=== PATIENT | male | born 1975 | race Caucasian/White ===

== ENCOUNTER 2017-02-08 19:08 | Emergency (ER) | payer OTHER ==
[~2017-02-08] VITALS: Ht 180.3 cm; Wt 109.3 kg
--- NOTE | ~2017-02-08 | EKG ---
PATIENT: FAWN VINCENT UNIT #: [id number] Ventricular Rate: 53 BPM Atrial Rate: 53 BPM P-R Interval: 158 ms QRS Duration: 92 ms Q-T Interval: 422 ms QTC Calculation(Bezet): 395 ms P [place]: 2 degrees Calculated R [place]: -13 degrees Calculated T [place]: 58 degrees Diagnosis Line: Sinus bradycardia Diagnosis Line: Otherwise normal ECG Diagnosis Line: When compared with ECG of 20-JUN-2015 17:52, Diagnosis Line: No significant change was found Diagnosis Line: Confirmed by MODESTO MULLINS MD ([id number]) on Diagnosis Line: 02/11/2017 10:48:37 AM INTERPRETING MD: HARPREET FISCHER
--- NOTE | ~2017-02-08 | CT2 ---
[facility] A Service of [facility] RADIOLOGY TEXT RESULTS PATIENT: FAWN VINCENT LOCATION: [facility] : 73 UNIT #: [id number] AGE: [address]: Raji Fraga DO SEX: M ORDER DR: [id number] [facility] [address] [place], [place] [address] [id number] E MR#: [id number] Acc #: [id number] NAME: FAWN VINCENT : 1975 SEX: M STUDY DATE/TIME: 02/08/2017 23:39 UNIT: MARK ROOM: STUDY DESCRIPTION: CT Abd and Pelv W Cont Attending Physician: Raji Fraga D.O. Ordering Physician: Raji Fraga D.O. Primary Care Physician: Dileep Marion M.D. MEDICAL IMAGING REPORT This report is preliminary unless electronic signature is present EXAM CT abdomen and pelvis with contrast INDICATIONS Generalized abdominal pain and upper abdominal pain today. PROCEDURE Contrast-enhanced CT abdomen and pelvis. This CT exam was performed with one or more of the following radiation dose reduction techniques: Automatic exposure control, adjustment of mA and/or kV according to patient size, and iterative reconstruction. COMPARISON 05/24/2012 FINDINGS ABDOMEN WITH CONTRAST: Included lung bases are clear. Partially included right infrahilar node measures 3.0 x 1.5 cm. This was not seen on the previous study. This level was not included. No liver or splenic mass. The kidneys, adrenal glands, pancreas and gallbladder are unremarkable. The bowel loops are nondilated. Appendix is normal. PELVIS WITH CONTRAST: No pelvic mass or fluid. Liver is borderline enlarged at 19 cm in length. It has increased in size since 2011, when it measured 16.6 cm. IMPRESSION 1. Borderline hepatomegaly increased since 2011. No focal liver lesion. 2. Otherwise, no acute findings are seen in the abdomen or pelvis. [facility] A Service of [facility] RADIOLOGY TEXT RESULTS PATIENT: FAWN VINCENT LOCATION: [facility] : 73 UNIT #: [id number] AGE: [address]: Raji Fraga DO SEX: M ORDER DR: 3. A partially included right infrahilar lymph node. This level was not included on the previous CT. Consider evaluation with a chest CT, as deemed clinically appropriate. Dictated by... Myron Arredondo M.D. THIS IS AN ELECTRONICALLY VERIFIED REPORT Myron Arredondo M.D. at 02/10/2017 9:57 PM EED/july TD: 02/09/2017 12:01 JOB #: [id number] MEDICAL IMAGING REPORT Page 1 of 1 COPY
[~2017-02-08 19:08] MED LIST: ALBUTEROL17 GM; LORTAB 5/500 TA1 TA1 PO; NO MEDICATIONS; PHENERGAN DM1 ML; PHENERGAN VC W120 M1 PO; PHENERGAN/CODEIN5 ML PO; PHENERGAN25 M1 PO; PREDNISONE5 M1; PRILOSEC20 M1 PO; TYLENOL #3 PO; VIBRAMYCIN100 M1 PO; VOLTAREN75 MG PO; ZITHROMAX; ZOFRANODT PO
[2017-02-08 19:44] LABS: BASOPHIL# 0.1 X10e3 (0-0.3); BASOPHIL% 0.6 % (0-2.5); EOSINOPHIL# 0.2 X10e3 (0-0.7); EOSINOPHIL% 2.3 % (0.0-7.0); HEMATOCRIT 45.1 % (38.0-50.0); HEMOGLOBIN 15.2 gm/dL (13.0-16.0); LYMPHOCYTE# 2.2 X10e3 (1.0-3.5); LYMPHOCYTE% 23.6 % (17.0-45.0); MEAN CELL VOLUME 83.3 FL (83-96); MEAN CORPUSCULAR HEMOGLOBIN 28.1 PG (28-34); MEAN CORPUSCULAR HGB CONC 33.8 g/dL (30-36); MEAN PLATELET VOLUME 8.1 FL (6.5-11.5); MONOCYTE# 0.6 X10e3 (0-1.0); MONOCYTE% 6.8 % (3.0-12.0); NEUTROPHIL# 6.3 X10e3 (1.5-7.1); NEUTROPHIL% 66.7 % (40-75); PLATELET COUNT 239 X10e3 (140-420); RED BLOOD COUNT 5.41 X10e (3.90-5.60); RED CELL DISTRIBUTION WIDTH 13.6 % (11.0-15.5); WHITE BLOOD COUNT 9.4 X10e3 (4.0-10.5)
[2017-02-08 20:03] LABS: DIFF IND NO
[2017-02-08 20:07] LABS: ALBUMIN SERUM 3.7 g/dL (3.5-5.0); BILIRUBIN, DIRECT 0.1 mg/dL (0.0-0.2); BILIRUBIN,INDIRECT 0.5 mg/dL (0.0-0.9); BILIRUBIN,TOTAL 0.6 mg/dL (0.2-2.0); CALCIUM SERUM 8.9 mg/dL (8.4-10.2); CREATININE SERUM 1.2 mg/dL (0.6-1.4); GLOM FILT RATE Estimated 74.2 mL/min (>60); POTASSIUM 4.1 mmol/L (3.5-5.1)
[2017-02-08 22:15] LABS: URINE SOURCE CLEAN CATCH
[2017-02-08 22:20] LABS: URINE APPEARANCE CLOUDY; URINE BILIRUBIN NEG (NEG); URINE BLOOD NEG (NEG); URINE COLOR YELLOW; URINE GLUCOSE NEG (NEG); URINE KETONE NEG (NEG); URINE LEUKOCYTE ESTERASE NEG (NEG); URINE NITRATE NEG (NEG); URINE PROTEIN NEG (NEG); URINE SPECIFIC GRAVITY 1.022 (1.003-1.035); URINE UROBILINOGEN 0.2 MG/DL (NEG)
[2017-02-08 22:21] LABS: CULTURE INDICATED? NO
[2017-02-08 23:04] LABS: AMPHETAMINE NEG (NEG); BARBITURATES NEG (NEG); BENZODIAZEPINES NEG (NEG); COCAINE NEG (NEG); MARIJUANA POS (NEG); OPIATES NEG (NEG); TRICYCLIC ANTIDEPRESSANTS NEG (NEG); U METHADONE NEG (NEG)
[2017-02-08 23:05] LABS: POC - CKMB 1.3 ng/mL (0.0-7.9); POC - TROPONIN <0.05 ng/mL (<=0.05)
== END 2017-02-09 02:06 | disposition home or self-care (01) ==
LOC: CED 19:08
PROVIDERS: Emergency Medicine
DX: R10.9 Unspecified abdominal pain (principal); R11.2 Nausea with vomiting, unspecified; R59.0 Localized enlarged lymph nodes; R19.7 Diarrhea, unspecified
CPT/HCPCS: 36415; 74177; 80048; 80076; 80307; 81003; 82553; 83690; 84484; 85025; 93005; 96361; 96372; 96374; 96375; 99284; J0500; J1885; J2270; J2405; Q9967